=== PATIENT | female | born 1935 | race Caucasian/White ===

== ENCOUNTER 2017-04-05 23:22 | Emergency (ER) | payer OTHER, MEDICARE ==
[2017-04-05 23:32] VITALS: BP 155/77; PULSE 80; TEMP 98.3; BMI 27.4
--- NOTE | 2017-04-05 23:34 | PDOC ---
History of Present Illness - General Chief Complaint: Blood Sugar Problem Stated Complaint: BIBA, I THINK MY SUGAR IS LOW Time Seen by Provider: 04/05/17 23:28 Past History - Past Medical History Allergies/Adverse Reactions: Allergies Allergy/AdvReac Type Severity Reaction Status Date / Time No Known Allergies Allergy Unverified 04/05/17 23:23 *DC/Admit/Observation/Transfer Diagnosis at time of Disposition: Diabetes mellitus Qualifiers: Diabetes mellitus type: type 2 Diabetes mellitus complication status: without complication - Discharge Dispostion Disposition: HOME Condition at time of disposition: Stable - Referrals - Patient Instructions Printed Discharge Instructions: Type 2 Diabetes Additional Instructions: Continue medications as prescribed Continue to eat regular meals Inform your physician about ania's incident Return to ER if you have persistent symptoms or measure low blood sugar - Post Discharge Activity
== END 2017-04-06 00:09 | disposition home or self-care (01) ==
LOC: FER 23:22
DX: E11.9 Type 2 diabetes mellitus without complications (principal)
CPT/HCPCS: 82962; 99282-25